=== PATIENT | female | born 1940 | race American Indian/Alaskan Native ===

== ENCOUNTER 2017-07-09 10:51 | Outpatient (CLI) | payer MEDICARE ==
--- NOTE | 2017-07-09 11:22 | XRay Report ---
XRAY RIGHT KNEE 4 THREE VIEWS: 07/09/17 CLINICAL: Osteoarthritis. 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 Normal appearance of the prosthesis. Moderate osteopenia.No joint effusion.Vascular calcifications and otherwise normal soft tissues. 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
== END 2017-07-09 10:52 | disposition home or self-care (01) ==
LOC: SPVIMAG 10:51
PROVIDERS: ATTEND Orthopaedic Surgery Sports Medicine
DX: M85.861 Other specified disorders of bone density and structure, right lower leg (principal); Z96.651 Presence of right artificial knee joint